=== PATIENT | male | born 1990 | race African-American/Black ===

== ENCOUNTER 2016-08-12 12:32 | Emergency (ER) | payer OTHER ==
[2016-08-12 12:42] VITALS: BP 115/70; PULSE 83; TEMP 98.4; BMI 23.5
--- NOTE | 2016-08-12 13:49 | PDOC ---
History of Present Illness - General Chief Complaint: Headache Stated Complaint: HEADACHE History Source: Patient Exam Limitations: No Limitations - History of Present Illness Initial Comments: 08/12/16 14:45 Chief complaint: Headache 3 days after smoking marijuana History of Present Illnesses: 26-year-old male with no significant medical problems here today complaining of intermittent headache 3 days after smoking cannabis. Patient reports that he smokes cannabis daily however. Patient denies changing his brand of cannabis. Reports that he has been waking up in the middle the night sweating with decreased appetite. Patient denies any nasal congestion, cough, or any nausea vomiting or diarrhea or known fever. He reports that he hasn't seen a doctor many years and was scared that something terrible was wrong. Patient also reports feeling confused lately as to what he wants to do in his life due to losing his job a few months ago due to his father being ill. Denies feeling depressed slightly anxious about his future. He drinks a beer every few days. 08/12/16 20:09 08/12/16 20:10 08/12/16 20:13 Timing/Duration: reports: waxing and waning (for 3 days ) Severity: Yes: mild Associated Symptoms: reports: other (slight forgetfulness for 3 days, headache intermittent for 3 days, waking up diaphoretic for last 3 nights ) Past History - Past Medical History Allergies/Adverse Reactions: Allergies Allergy/AdvReac Type Severity Reaction Status Date / Time No Known Allergies Allergy Verified 08/12/16 12:42 Home Medications: Ambulatory Orders Ibuprofen [Motrin -] 400 mg PO Q6H PRN #18 tablet 08/12/16 Other medical history: denies - Psycho/Social/Smoking Cessation Hx Suicidal Ideation: No Smoking History: Unknown if ever smoked Information on smoking cessation initiated: Yes 'Breaking Loose' booklet given: 08/12/16 Hx Alcohol Use: Yes Drug/Substance Use Hx: Yes Substance Use Type: None Review of Systems - Review of Systems Able to Perform ROS?: Yes Constitutional: Yes: Loss of Appetite (for 3 days), Night Sweats (for 3 nights ) HEENTM: No: Symptoms Reported Respiratory: No: Symptoms reported Cardiac (ROS): No: Symptoms Reported ABD/GI: No: Symptoms Reported : No: Symptoms Reported Musculoskeletal: No: Symptoms Reported Integumentary: No: Symptoms Reported Neurological: Yes: Headache (intermittent for 3 days ) Psychiatric: Yes: Stressors (loss of job). No: Sleep Pattern Change Endocrine: No: Symptoms Reported *Physical Exam - Vital Signs Last Vital Signs Temp Pulse Resp BP Pulse Ox 98.4 F 83 18 115/70 97 08/12/16 12:39 08/12/16 12:39 08/12/16 12:39 08/12/16 12:39 08/12/16 12:39 - Physical Exam General Appearance: Yes: Appropriately Dressed HEENT: positive: EOMI, PARTHA, TMs Normal, Pharyngeal Erythema, Tonsillar Erythema (with no uvular deviation ). negative: Tonsillar Exudate, Nasal Congestion, Rhinorrhea, Sinus Tenderness Neck: negative: Lymphadenopathy (R), Lymphadenopathy (L) Respiratory/Chest: positive: Lungs Clear, Normal Breath Sounds. negative: Chest Tender, Respiratory Distress Cardiovascular: positive: Regular Rhythm, Regular Rate, S1, S2 Comments:: 08/12/16 15:07 PSYCH: cooperative, casually dressed, good eye contact, Mood: "anxious", Affect : slightly constricted, denies auditory/visual hallucations, reports "I feel lost don't know what to do next, not working, have bills to pay" judgment/ insight limited, smokes cannabis daily, drinks can of beer few times a week, alert, oriented X 3, no ataxia, loosening of associations. Gastrointestinal/Abdominal: positive: Normal Bowel Sounds, Soft. 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 negative: Numbness, Sensory Deficit Medical Decision Making - Medical Decision Making 08/12/16 20:13 26-year-old male with no significant medical problems here today complaining of intermittent headache 3 days after smoking cannabis. Patient reports that he smokes cannabis daily however. Patient denies changing his brand of cannabis. Reports that he has been waking up in the middle the night sweating with decreased appetite. Patient denies any nasal congestion, cough, or any nausea vomiting or diarrhea or known fever. He reports that he hasn't seen a doctor many years and was scared that something terrible was wrong. Patient also reports feeling confused lately as to what he wants to do in his life due to losing his job a few months ago due to his father being ill. Denies feeling depressed slightly anxious about his future. He drinks a beer every few days. He denies headache presently. Influenza A or B rule out rule out strep throat pharyngitis intermittent headache for 3 days PLAN: throat C & S rapid negative influenza A or B rapid negative he was advised that it would be to his benefit to stop smoking cannabis Ibuprofen 400 mg every 6 hours as needed for headache or fever Patient was advised that it might be helpful to go see a counselor in regards to talk about his future *DC/Admit/Observation/Transfer Diagnosis at time of Disposition: Viral syndrome Headache Qualifiers: Headache type: unspecified Headache chronicity pattern: unspecified pattern Intractability: not intractable Qualified Code(s): R51 - Headache - Discharge Dispostion Disposition: HOME Condition at time of disposition: Stable - Prescriptions Prescriptions: Ibuprofen [Motrin -] 400 mg PO Q6H PRN #18 tablet PRN Reason: Fever Or Pain - Patient Instructions Additional Instructions: Follow Up at [facility] at [phone] for further evaluation and complete physical on 08/14/2016 Rest and drink a lot a fluids especially water and juice Follow up with mental health counseling at [facility] at [address], [place] [phone] or at family services of [facility] at [address] [facility] [address]-floor [place], [place] [phone] Return to emergency room if symptoms worsen or new symptoms develop advised that it would be better for him to not smoke cannabis Patient voiced understanding of discharge instructions and all questions were answered
== END 2016-08-12 16:22 | disposition home or self-care (01) ==
LOC: JERFT 12:32
DX: B34.9 Viral infection, unspecified (principal); R51 Headache; F12.10 Cannabis abuse, uncomplicated
CPT/HCPCS: 36415; 87070; 87430; 87804; 99281-25

== ENCOUNTER 2016-08-24 10:09 | Emergency (ER) | payer OTHER ==
[2016-08-24 10:26] VITALS: BP 128/54; PULSE 98; TEMP 98.5; BMI 18.1
--- NOTE | 2016-08-24 11:17 | PDOC ---
History of Present Illness - General Chief Complaint: Headache Stated Complaint: HEADACHE, BLURRY VISION Time Seen by Provider: 08/24/16 10:42 History Source: Patient Exam Limitations: No Limitations - History of Present Illness Initial Comments: 08/24/16 11:18 Chief complaint:Headache with blurred vision last night lasted 20 sec HPI: He is a 26-year-old male here today complaining of having a headache last night that woke him up from sleep felt like a shooting pain right side of head with blurred vision right eye that lasted 20 seconds. Patient reports having minimal headache presently. Patient denies any nausea,. Patient denies any visual changes presently. Patient denies dizziness, change in level of alertness. Patient also reports having chronic mid lower lumbar and thoracic back pain with radiation of pain down the anterior legs daily since 2016. 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 Patient has been seeing some DrDerrell in getting treatment but would like to change to a different doctor. Patient also reports having a strong sense of smell since stopping smoking cannabis for the last few weeks or drinking. Patient has slight nasal congestion. Patient denies any sore throat, or cough,. Patient denies any numbness of legs weakness of legs or any saddle anesthesia or incontinency. Patient reports that headache presently is minimal right 2 out of 10. Patient denies that he has had headaches like to when he had last night and in the past.. He reports somebody seen here last time and had mentioned that he had wanted to speak to a mental health counselor due to feeling as if he has to direction in his life at this time patient reports that he lost the papers would like pain for again with referral PMH: No HIV Meds: No anticoagulants Allergies: PSH:blurred vision last night, Social Hx: [not working, lives wiith father REVIEW OF SYSTEMS GENERAL/CONSTITUTIONAL: No fever or chills. No weakness. No weight change. HEAD, EYES, EARS, NOSE AND THROAT: blurred vision last night rt. eye lasted 20 sec, denies photophobia, phonophobia. No ear pain or discharge. No sore throat. , nasal congestion, CARDIOVASCULAR: No chest pain or shortness of breath. RESPIRATORY: No cough, wheezing, or hemoptysis. GASTROINTESTINAL: No nausea, vomiting. No diarrhea or constipation. No rectal bleeding. GENITOURINARY: No dysuria, frequency, or change in urination. MUSCULOSKELETAL: No joint or muscle swelling or pain. No neck , thoracic and lower back pain patient down anterior bilateral legs to her feet NEUROLOGIC: rt. sided headache shooting pain last night woke from sleep lasted 20 sec. denies vertigo, loss of consciousness, altered mental status, or loss of sensation. PSYCHIATRIC: overwhelmed lately ENDOCRINE: No increased thirst. wt. loss 20 lbs this year. HEMATOLOGIC/LYMPHATIC: No anemia, easy bleeding, or history of blood clots. ALLERGIC/IMMUNOLOGIC: No hives or skin allergy. No latex allergy. PHYSICAL EXAM General Appearance: Appropriately dressed. No apparent distress, no intoxication HEENT: EOMI, PARTHA. No nystagmus. Normal voice. TMs normal, pharynx normal. No pallor of conjunctivae, no scleral icterus Neck: Supple, trachea midline. No tenderness, rigidity, carotid bruit, stridor , lymphadenopathy, thyromegaly. Respiratory/Chest: Lungs CTABL. Breath sounds normal. No chest tenderness, despiratory ristress, accessory muscle Use, labored respiration, crackles, rales, rhonchi, stridor, wheezing, dullness Cardiovascular: Regular Rhythm, Regular Rate, S1, S2. No JVD, Murmur, Bradycardia, Tachycardia Musculoskeletal: Normal Inspection. No CVA Tenderness, Decreased Range of Motion] Extremity: FROM of all extremities, Normal Capillary Refill, Normal Inspection, Normal Range of Motion, Pelvis Stable. No tenderness, Pedal Edema, Swelling, Erythema or deformity Integumentary: Normal Color, Dry, Warm, . 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 No appreciable EOM Palsy, Facial Droop or Sensory Deficit 08/24/16 11:21 08/24/16 11:29 08/24/16 13:16 08/24/16 13:17 Timing/Duration: reports: other (minimal now) Severity: Yes: mild Associated Symptoms: reports: other (rt. sided headache presently, nasal congestion, last night woke with shooting pain rt. side of head lasted 20 sec, rt. eye slight blurring of vision, chronic lower back pain with pain radiating down anterior legs sine 06/2015. ). denies: paresthesia Past History - Past Medical History Allergies/Adverse Reactions: Allergies Allergy/AdvReac Type Severity Reaction Status Date / Time No Known Allergies Allergy Verified 08/24/16 10:20 Home Medications: Ambulatory Orders Fexofenadine HCl [Julissa Allergy] 180 mg PO DAILY #10 tablet 08/24/16 Fluticasone Prop 0.05% Nasal [Flonase -] 2 spray NS DAILY #1 spray 08/24/16 Ibuprofen [Motrin -] 400 mg PO Q6H PRN #18 tablet 08/24/16 Other medical history: DENIES. - Psycho/Social/Smoking Cessation Hx Suicidal Ideation: No Smoking History: Former smoker Have you smoked in the past 12 months: No Information on smoking cessation initiated: No 'Breaking Loose' booklet given: 08/12/16 Hx Alcohol Use: Yes Drug/Substance Use Hx: Yes Substance Use Type: None Review of Systems - Review of Systems Able to Perform ROS?: Yes Constitutional: No: Symptoms Reported HEENTM: Yes: Blurred Vision (rt. eye blurred vision last night lasted 20 sec. ) , Nose Congestion Respiratory: No: Symptoms reported Cardiac (ROS): No: Symptoms Reported ABD/GI: No: Symptoms Reported : No: Symptoms Reported Musculoskeletal: Yes: Back Pain (lower back/thoracic pain radiates down leg anteriorly since 06/2016. ) Neurological: Yes: Headache (shooting pain rt. temporal/parietal area last night minor headache now) *Physical Exam - Vital Signs Last Vital Signs Temp Pulse Resp BP Pulse Ox 98.5 F 98 H 19 128/54 98 08/24/16 10:20 08/24/16 10:20 08/24/16 10:20 08/24/16 10:20 08/24/16 10:20 - Physical Exam General Appearance: Yes: Appropriately Dressed HEENT: positive: EOMI, PARTHA, Nasal Congestion (left turbinate edema superior, rt. minimal edema ). negative: Tonsillar Exudate, Tonsillar Erythema Neck: negative: Lymphadenopathy (R), Lymphadenopathy (L), Tender lateral, Tender midline Respiratory/Chest: positive: Lungs Clear, Normal Breath Sounds. 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 negative: Sensory Deficit Medical Decision Making - Medical Decision Making 08/24/16 11:28 He is a 26-year-old male here today complaining of having a headache last night that woke him up from sleep felt like a shooting pain right side of head with blurred vision right eye that lasted 20 seconds. Patient reports having minimal headache presently. Patient denies any nausea,. Patient denies any visual changes presently. Patient denies dizziness, change in level of alertness. Patient also reports having chronic mid lower lumbar and thoracic back pain with radiation of pain down the anterior legs daily since 2016. 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 Patient has been seeing some DrDerrell in getting treatment but would like to change to a different doctor. Patient also reports having a strong sense of smell since stopping smoking cannabis for the last few weeks or drinking. Patient has slight nasal congestion. Patient denies any sore throat, or cough,. Patient denies any numbness of legs weakness of legs or any saddle anesthesia or incontinency. Patient reports that headache presently is minimal right 2 out of 10. Patient denies that he has had headaches like to when he had last night and in the past. Nasal congestion headache Chronic lumbar pain with radiculopathy b/l legs thoracic back pain PLAN: flonase 2 sprays each nostril julissa 180 mg daily for 10 days follow up for total physical Orthopedist for further evaluation of back pain 08/24/16 11:29 08/24/16 13:16 *DC/Admit/Observation/Transfer Diagnosis at time of Disposition: Nasal congestion, Lumbar radiculopathy, chronic Headache Qualifiers: Headache type: unspecified Headache chronicity pattern: acute headache Intractability: not intractable Qualified Code(s): R51 - Headache Thoracic back pain Qualifiers: Chronicity: unspecified Back pain laterality: unspecified Qualified Code(s): M54.6 - Pain in thoracic spine - Discharge Dispostion Disposition: HOME Condition at time of disposition: Stable - Prescriptions Prescriptions: Fexofenadine HCl [Julissa Allergy] 180 mg PO DAILY #10 tablet Fluticasone Prop 0.05% Nasal [Flonase -] 2 spray NS DAILY #1 spray Ibuprofen [Motrin -] 400 mg PO Q6H PRN #18 tablet PRN Reason: Fever Or Pain - Patient Instructions Additional Instructions: Follow-up with primary care provider at [facility] [phone] Follow-up with orthopedist for further evaluation of back problems Follow up with mental health at [facility] at [address] [place] [address] [place] [phone] [address], mental health clinic [phone] Return to emergency room if symptoms worsen Patient voiced understanding of discharge instructions and all questions were answered
== END 2016-08-24 11:44 | disposition home or self-care (01) ==
LOC: JERFT 10:09
DX: R51 Headache (principal); M54.16 Radiculopathy, lumbar region; M54.6 Pain in thoracic spine
CPT/HCPCS: 99281-25

== ENCOUNTER 2016-10-29 20:36 | Emergency (ER) | payer OTHER ==
[2016-10-29 20:52] VITALS: BP 112/63; PULSE 98; TEMP 98.7; BMI 20.9
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
[2016-10-29] MEDS ORDERED: KETOROLAC TROMETHAMINE 60 MG/2 ML VIAL ONE (21:13)
[2016-10-29] MEDS ORDERED: KETOROLAC TROMETHAMINE 60 MG/2 ML VIAL IM ONE (21:13)
== END 2016-10-29 21:23 | disposition home or self-care (01) ==
LOC: JERFT 20:36
PROC: 3E0233Z Introduction of Anti-inflammatory into Muscle, Percutaneous Approach (ICD-10-PCS; principal; 2016-10-29)
DX: M54.5 Low back pain (principal); V89.2XXS Person injured in unspecified motor-vehicle accident, traffic, sequela
CPT/HCPCS: 96372; 99281-25

== ENCOUNTER 2021-02-28 17:14 | Emergency (ER) | payer SELFPAY ==
[2021-02-28 17:39] VITALS: BP 127/71; PULSE 96; TEMP 98; BMI 23.7
== END 2021-02-28 18:47 | disposition home or self-care (01) ==
LOC: JERFT 17:14
DX: M79.602 Pain in left arm (principal)
CPT/HCPCS: 99282-25

== ENCOUNTER 2022-03-11 18:48 | Emergency (ER) | payer OTHER ==
[2022-03-11 19:00] VITALS: BP 110/66; PULSE 81; RESP 20; TEMP 98.8; BMI 23.0
== END 2022-03-11 20:20 | disposition home or self-care (01) ==
LOC: JER 18:48
DX: J02.9 Acute pharyngitis, unspecified (principal); R09.82 Postnasal drip
CPT/HCPCS: 0241U-QW; 87651; 99283-25

== ENCOUNTER 2022-04-03 08:30 | Emergency (ER) | payer OTHER ==
[2022-04-03] MEDS ORDERED: ACETAMINOPHEN 500 MG TABLET (FP) PO ONE (09:30)
[2022-04-03 10:05] VITALS: BP 100/77; PULSE 81; RESP 16; TEMP 98.4; BMI 22.3
[2022-04-03] MEDS ORDERED: ACETAMINOPHEN 325 MG TABLET (FP) ONE (10:08)
== END 2022-04-03 11:50 | disposition home or self-care (01) ==
LOC: JER 08:30
DX: J06.9 Acute upper respiratory infection, unspecified (principal)
CPT/HCPCS: 0241U-QW; 99283-25

== ENCOUNTER 2022-04-14 17:19 | Emergency (ER) | payer OTHER ==
[2022-04-14 17:26] VITALS: BP 118/72; PULSE 75; RESP 18; TEMP 98; BMI 22.0
== END 2022-04-14 19:41 | disposition home or self-care (01) ==
LOC: JERFT 17:19
DX: R13.10 Dysphagia, unspecified (principal); Z76.0 Encounter for issue of repeat prescription
CPT/HCPCS: 99283-25

== ENCOUNTER 2023-02-07 18:52 | Emergency (ER) | payer OTHER ==
[2023-02-07 19:06] VITALS: TEMP 98.3; BMI 50.7
[2023-02-07 21:01] VITALS: BP 110/66; PULSE 70; RESP 19
[2023-02-07] MEDS ORDERED: MAG HYDROX/ALH/SMC/DPHA/LIDO 240 ML MOUTHWASH MM ONE (21:02)
[2023-02-08] MEDS ORDERED: MAG HYDROX/ALH/SMC/DPHA/LIDO 240 ML MOUTHWASH MM ONE (20:11)
== END 2023-02-07 21:58 | disposition home or self-care (01) ==
LOC: JERFT 18:52
DX: R09.89 Other specified symptoms and signs involving the circulatory and respiratory systems (principal)
CPT/HCPCS: 70360-TC-FY; 99283-25

== ENCOUNTER 2023-04-14 08:59 | Emergency (ER) | payer OTHER ==
[2023-04-14 09:03] VITALS: BP 117/71; PULSE 93; RESP 20; TEMP 98.7; BMI 20.9
[2023-04-14] MEDS ORDERED: ACETAMINOPHEN 500 MG TABLET (FP) PO ONE (10:03)
[2023-04-14] MEDS ORDERED: MAG HYDROX/AL HYDROX/SIMETH 30 ML UNIT-DOSE CUP PO ONE (10:03)
[2023-04-14] MEDS ORDERED: FAMOTIDINE 20 MG/50 ML IVPB 20 MG/50 ML MG IVPB ONE ×2 (10:03→10:17)
[2023-04-14] MEDS ORDERED: ACETAMINOPHEN 325 MG TABLET (FP) ONE (10:16)
[2023-04-14] MEDS ORDERED: MAG HYDROX/AL HYDROX/SIMETH 30 ML UNIT-DOSE CUP ONE (10:16)
[2023-04-14 10:48] LABS: BASO % 0.5 % (0-2.0); EOS % 1.9 % (0-4.5); HEMATOCRIT 41.6 % (35.4-49); HEMOGLOBIN 14.1 GM/dL (11.7-16.9); MCH 32.5 pg (25.7-33.7); MCHC 33.8 g/dl (32.0-35.9); MEAN CELL VOLUME 96.2 fl (80-96); MEAN PLT VOLUME 7.6 fl (7.5-11.1); NEUT % 45.6 % (42.8-82.8); PLATELET COUNT 270 10^3/uL (134-434); RBC 4.32 M/mm3 (4.00-5.60); RDW 13.3 % (11.9-15.9); WHITE BLOOD COUNT 6.7 K/mm3 (4.0-10.0)
[2023-04-14 10:59] LABS: INR 0.96 (0.83-1.09); PROTHROMBIN TIME (PATIENT) 11.1 SEC (9.7-13.0)
[2023-04-14 11:00] LABS: POTASSIUM 4.7 mmol/L (3.5-5.1)
[2023-04-14 11:01] LABS: ACTIVATED PTT 30.9 SECONDS (25.2-36.5)
[2023-04-14 11:03] LABS: ALBUMIN 4.3 g/dl (3.4-5.0); CALCIUM 9.9 mg/dL (8.5-10.1); MAGNESIUM 2.2 mg/dL (1.8-2.4)
[2023-04-14 11:06] LABS: CREATININE 0.9 mg/dL (0.55-1.3)
[2023-04-14 11:08] LABS: BILIRUBIN,TOTAL 0.5 mg/dL (0.2-1); TOT PROT 7.8 g/dl (6.4-8.2)
== END 2023-04-14 14:30 | disposition home or self-care (01) ==
LOC: JER 08:59
PROC: 3E033GC Introduction of Other Therapeutic Substance into Peripheral Vein, Percutaneous Approach (ICD-10-PCS; principal; 2023-04-14)
DX: R07.89 Other chest pain (principal)
CPT/HCPCS: 36415; 71046-TC-FY; 80053; 83735; 84484; 85025; 85610; 85730; 93005; 93010; 99284-25

== ENCOUNTER 2023-05-23 15:53 | Emergency (ER) | payer OTHER ==
[2023-05-23 16:09] VITALS: BP 131/75; PULSE 89; RESP 18; TEMP 98.1; BMI 23.0
== END 2023-05-23 18:25 | disposition home or self-care (01) ==
LOC: JERFT 15:53
DX: R43.9 Unspecified disturbances of smell and taste (principal)
CPT/HCPCS: 99282-25

== ENCOUNTER 2023-05-24 00:02 | Emergency (ER) | payer OTHER ==
[2023-05-24 00:21] VITALS: BP 168/72; PULSE 95; RESP 20; TEMP 98.2; BMI 23.0
== END 2023-05-24 03:49 | disposition home or self-care (01) ==
LOC: JER 00:02
DX: H57.89 Other specified disorders of eye and adnexa (principal)
CPT/HCPCS: 70450-TC; 70486-TC; 99284-25

== ENCOUNTER 2024-01-24 22:45 | Emergency (ER) | payer OTHER ==
[2024-01-24 22:50] VITALS: BP 110/62; PULSE 78; RESP 18; TEMP 97.9; BMI 25.7
== END 2024-01-25 01:15 | disposition home or self-care (01) ==
LOC: JER 22:45
DX: S69.91XA Unspecified injury of right wrist, hand and finger(s), initial encounter (principal); V43.32XA Unspecified car occupant injured in collision with other type car in nontraffic accident, initial encounter
CPT/HCPCS: 73110-TC-RT-FY; 73130-TC-RT-FY; 99283-25